=== PATIENT | female | born 1970 | race American Indian/Alaskan Native ===

== ENCOUNTER 2017-09-27 17:44 | Emergency (ER) | payer SELFPAY ==
[2017-09-27 20:21] LABS: Basophils # (Auto) 0.1 K/mm3 (0.0-0.1); Basophils % (Auto) 0.5 % (0.0-1.8); Eosinophils # (Auto) 0.1 K/mm3 (0.0-0.4); Eosinophils % (Auto) 0.5 % (0.0-4.3); Hematocrit 41.8 % (30.3-42.9); Hemoglobin 13.9 gm/dl (10.1-14.3); Lymphocytes # (Auto) 2.8 K/mm3 (1.2-5.4); Mean Corpuscular HGB Conc 33 % (30-34); Mean Corpuscular Hemoglobin 26 pg (28-32); Mean Corpuscular Volume 77 fl (79-97); Monocytes # (Auto) 0.7 K/mm3 (0.0-0.8); Monocytes % (Auto) 5.3 % (0.0-7.3); Platelet Count 423 K/mm3 (140-440); Red Blood Count 5.44 M/mm3 (3.65-5.03); Red Cell Distribution Width 13.4 % (13.2-15.2)
[2017-09-27 20:35] LABS: BUN/Creatinine Ratio 30; Blood Urea Nitrogen 12 mg/dL (7-17); Calcium 8.8 mg/dL (8.4-10.2); Hemolysis Index 10
[2017-09-27] MEDS ORDERED: PERCOCET 5/325 ONE (22:34)
[2017-09-27] MEDS ORDERED: PERCOCET 5/325 PO ONE (22:35)
[2017-09-27] MEDS ORDERED: ZOFRAN ODT ONE (22:36)
[2017-09-27] MEDS ORDERED: ZOFRAN ODT PO ONE (22:39)
--- NOTE | 2017-09-28 00:39 | XRay Report ---
FINAL REPORT EXAM: XR L-Spine CLINICAL INDICATIONS: BACK PAIN FINDINGS: AP and lateral views of the lumbar spine were acquired no fracture is seen in the lumbar spine. There appear to be thin syndesmophytes at all levels of the lumbar spine and fusion of the facet joints. The sacroiliac joints appear at least partially fused. The findings are consistent with ankylosing spondylitis and clinical correlation is advised. The intervertebral disc space heights appear preserved. IMPRESSION: FINDINGS SUSPICIOUS FOR ANKYLOSING SPONDYLITIS NO FRACTURE IS SEEN IN THE LUMBAR SPINE
--- NOTE | 2017-09-28 00:48 | XRay Report ---
FINAL REPORT EXAM: XR CHEST ROUTINE 2V HISTORY: sob and chest pain TECHNIQUE: 2 views of the chest. PRIORS: None. FINDINGS: The cardiomediastinal silhouette appears normal. The lungs are clear. The bones and soft tissues are unremarkable. IMPRESSION: No evidence of acute cardiopulmonary disease
[2017-09-28 02:45] VITALS: BP 128/72
[2017-09-28 03:29] LABS: Bacteria,Urine 4+ /HPF (Negative); Bilirubin,Urine NEG (Negative); Blood,Urine NEG (Negative); Color,Urine Yellow (Yellow); Hyaline Casts,Urine 3 /LPF; Mucus,Urine 3+ /HPF; Protein,Urine <15 mg/dL mg/dL (Negative); Urobilinogen,Urine < 2.0 mg/dL (<2.0)
--- NOTE | 2017-09-28 03:46 | Emergency Department Report ---
ED General Adult HPI - General Chief complaint: Chest Pain Stated complaint: BACK PAIN Time Seen by Provider: 09/27/17 23:25 Source: patient Mode of arrival: Ambulatory Limitations: No Limitations - History of Present Illness Initial comments: 87-year-old female with blood in her family for having really bad back pain. Chest pain with deep breath. It was reported that patient has had back pain for a year but the last few days it's gotten worse. Pain is worse with picking up pending. Pain is better when she lies down. She reports the pain is sharp. He sits last menstrual period was 09/24/2017. She has no known drug allergies. She has a history of diabetes. -: days(s) (last 3 days as gotten worse), year(s) (intermittent for over a year) Radiation: back Severity scale (0 -10): 0 Quality: aching, sharp Consistency: intermittent Improves with: movement, rest Worsens with: none Associated Symptoms: denies other symptoms Treatments Prior to Arrival: NSAID - Related Data Previous Rx's Medication Instructions Recorded Last Taken Type Ibuprofen [Motrin 600 MG tab] 600 mg PO Q8H PRN #30 tablet 09/28/17 Unknown Rx Allergies Allergy/AdvReac Type Severity Reaction Status Date / Time No Known Allergies Allergy Unverified 09/27/17 18:05 ED Review of Systems ROS: Stated complaint: BACK PAIN Other details as noted in HPI Constitutional: denies: chills, fever Eyes: denies: eye pain, eye discharge, vision change ENT: denies: ear pain, throat pain Respiratory: denies: cough, shortness of breath, wheezing Cardiovascular: denies: chest pain, palpitations Endocrine: no symptoms reported Gastrointestinal: denies: abdominal pain, nausea, diarrhea Genitourinary: denies: urgency, dysuria, discharge Musculoskeletal: back pain Skin: denies: rash, lesions Psychiatric: denies: anxiety, depression Hematological/Lymphatic: as per HPI ED Past Medical Hx - Past Medical History Hx Diabetes: Yes - Social History Smoking Status: Never Smoker Substance Use Type: None - Medications Home Medications: Home Medications Medication Instructions Recorded Confirmed Last Taken Type Ibuprofen [Motrin 600 MG tab] 600 mg PO Q8H PRN #30 tablet 09/28/17 Unknown Rx ED Physical Exam - General Limitations: No Limitations General appearance: alert, in no apparent distress - Head Head exam: Present: atraumatic, normocephalic - Eye Eye exam: Present: EOMI - ENT ENT exam: Present: mucous membranes moist - Neck Neck exam: Present: normal inspection - Respiratory Respiratory exam: Present: normal lung sounds bilaterally. Absent: respiratory distress - Cardiovascular Cardiovascular Exam: Present: regular rate, normal rhythm. Absent: systolic murmur, diastolic murmur, rubs, gallop - GI/Abdominal GI/Abdominal exam: Present: soft, normal bowel sounds. Absent: tenderness - Extremities Exam Extremities exam: Present: normal inspection - Back Exam Back exam: Present: muscle spasm, paraspinal tenderness. Absent: full ROM - Neurological Exam Neurological exam: Present: alert, oriented X3 - Psychiatric Psychiatric exam: Present: normal affect, normal mood - Skin Skin exam: Present: warm, dry, intact, normal color. Absent: rash ED Course Vital Signs 09/27/17 09/27/17 09/27/17 18:00 20:53 22:37 Temperature 98.2 F 98.3 F Pulse Rate 72 72 Respiratory 20 12 20 Rate Blood Pressure 120/78 118/69 Blood Pressure [Left] O2 Sat by Pulse 99 99 Oximetry 09/27/17 09/28/17 23:44 02:44 Temperature 98.5 F 98.5 F Pulse Rate 76 68 Respiratory 18 18 Rate Blood Pressure Blood Pressure 126/66 128/72 [Left] O2 Sat by Pulse 98 99 Oximetry ED Medical Decision Making - Lab Data Result diagrams: 09/27/17 19:56 09/27/17 19:56 - Medical Decision Making Patient has been evaluated by this provider fast track. Patient's had lab work Chest x-ray, lumbar x-ray Referral to orthopedist Pain medication for discharge H and was given Percocet for pain management during her ER visit Critical care attestation.: If time is entered above; I have spent that time in minutes in the direct care of this critically ill patient, excluding procedure time. ED Disposition Clinical Impression: Ankylosing spondylitis lumbar region Lumbago Qualifiers: Chronicity: chronic Back pain laterality: midline Sciatica presence: without sciatica Qualified Code(s): M54.5 - Low back pain; G89.29 - Other chronic pain Disposition: - TO HOME OR SELFCARE Is pt being admited?: No Does the pt Need Aspirin: No Condition: Stable Instructions: Chronic Back Pain (ED) Additional Instructions: Please take pain meds as prescribed. Please follow up orthopedic for your back pain. Por favor, tome medicamentos para el dolor segn lo prescrito. Por favor, siga ortopdico para gallegos dolor de espalda. Prescriptions: Ibuprofen [Motrin 600 MG tab] 600 mg PO Q8H PRN #30 tablet PRN Reason: Pain Referrals: PRIMARY CARE, [Primary Care Provider] - 3-5 Days HERLINDA PRICE MD [Staff Physician] - 3-5 Days EDER OTERO MD [Staff Physician] - 3-5 Days Forms: Accompanied Note Print Language: BRUNEIAN
== END 2017-09-28 04:07 | disposition home or self-care (01) ==
LOC: ED 17:44
DX: M45.6 Ankylosing spondylitis lumbar region (principal); E11.9 Type 2 diabetes mellitus without complications
CPT/HCPCS: 36415; 71046; 72100; 80048; 81001; 84484; 84702; 85025; 87086; 93005; 93010; 99284; Q0162